=== PATIENT | female | born 1995 | race Caucasian/White ===

== ENCOUNTER 2019-09-20 11:32 | Emergency (ER) | payer OTHER ==
[~2019-09-20] VITALS: Ht 154.9 cm; Wt 46.3 kg
[~2019-09-20 11:32] MED LIST: ACETAMINOPHEN325 M1 PO; DARVOCET-N 1001 EACH PO; NAPROXEN 220 M220 M1 PO
[2019-09-20 12:54] LABS: URINE BILIRUBIN NEGATIVE (Negative); URINE BLOOD 3+ (Negative); URINE CLARITY CLEAR; URINE COLOR YELLOW; URINE GLUCOSE-RANDOM* NEGATIVE (Negative); URINE KETONES 1+ (Negative); URINE LEUKOCYTES-REFLEX TRACE (Negative); URINE PROTEIN (DIPSTICK) NEGATIVE (Negative); URINE UROBILINOGEN 0.2 E.U./dl (0.2-1.0)
[2019-09-20 12:59] LABS: URINE NITRITE-REFLEX POSITIVE (Negative)
[2019-09-20 13:08] LABS: HEMATOCRIT 46.4 % (37.0-47.0); HEMOGLOBIN 16.2 gm/dL (12.0-15.0); MCH 32.3 pg (26.0-34.0); MCV 92.4 fL (80.0-100.0); RBC 5.03 mil/uL (4.20-5.00); RDW 12.7 % (10.5-14.5); WBC 10.8 thou/uL (4.0-11.0)
[2019-09-20 13:22] LABS: CALCIUM 9.5 mg/dL (8.5-10.1); CREATININE 1.1 mg/dL (0.6-1.0); POTASSIUM 3.6 mmol/L (3.5-5.1)
[2019-09-20 13:37] LABS: BACTERIA-REFLEX >30 Many /HPF (None Seen); CASTS None Seen /LPF (None Seen); CRYSTALS None Seen /LPF (None Seen); SQUAMOUS 4-10 Moderate /LPF (0-3)
[2019-09-20 13:38] LABS: URINE RBC 0-2 Rare /HPF (0-2); URINE WBC-REFLEX 6-15 Few /HPF (0-5)
[2019-09-20] MEDS ORDERED: MACROBID 100 M100 M1 PO (13:44)
[2019-09-20 14:19] VITALS: BP 138/83
== END 2019-09-20 14:20 | disposition home or self-care (01) ==
LOC: ER 11:32
PROVIDERS: Physician Assistant
DX: N93.8 Other specified abnormal uterine and vaginal bleeding (principal); N83.202 Unspecified ovarian cyst, left side; N39.0 Urinary tract infection, site not specified; Z79.899 Other long term (current) drug therapy; Z88.2 Allergy status to sulfonamides; Z91.040 Latex allergy status